=== PATIENT | female | born 1970 | race Caucasian/White ===

== ENCOUNTER 2017-06-10 09:38 | Emergency (ER) | payer BC ==
[~2017-06-10] VITALS: Ht 170.2 cm; Wt 101.6 kg
[2017-06-10 09:48] VITALS: BP_SYST 122
[2017-06-10 11:38] VITALS: BP_SYST 121
== END 2017-06-10 11:38 | disposition home or self-care (01) ==
LOC: SED 09:38
DX: J02.8 Acute pharyngitis due to other specified organisms (principal); B96.89 Other specified bacterial agents as the cause of diseases classified elsewhere; Z88.0 Allergy status to penicillin; Z88.2 Allergy status to sulfonamides
CPT/HCPCS: 36415; 71045; 86403; 86710; 87081; 99285

== ENCOUNTER 2021-02-09 11:09 | Outpatient (CLI) | payer BC | END 2021-02-09 20:32 | disposition home or self-care (01) | LOC: SRD 11:09 | PROVIDERS: ATTEND Family Medicine | DX: Z01.811 Encounter for preprocedural respiratory examination (principal); I10 Essential (primary) hypertension | CPT/HCPCS: 71046-TC ==